=== PATIENT | male | born 1945 | race Caucasian/White ===

== ENCOUNTER → 2017-07-27 | Outpatient (CLI) | payer OTHER, MEDICARE ==
[~2017-07-27] VITALS: Ht 175.3 cm; Wt 84.8 kg
[~2017-07-27] MED LIST: ASPIR 8181 M1 PO; CIPRO500 MG PO; DAILY MULTIPLE1 EACH PO; HYTRIN10 MG PO; NORVASC10 MG PO; PRAVASTATIN SOD10 MG PO; TOPROL XL25 MG PO
== END | disposition home or self-care (01) ==
LOC: AMB 08:49
PROC: 0DB68ZX Excision of Stomach, Via Natural or Artificial Opening Endoscopic, Diagnostic (ICD-10-PCS; principal; 2017-07-27)
DX: K22.10 Ulcer of esophagus without bleeding (principal); K22.2 Esophageal obstruction; K44.9 Diaphragmatic hernia without obstruction or gangrene; K29.70 Gastritis, unspecified, without bleeding; K21.0 Gastro-esophageal reflux disease with esophagitis; I10 Essential (primary) hypertension; E78.6 Lipoprotein deficiency; Z79.82 Long term (current) use of aspirin
CPT/HCPCS: 88305; 88342 TC; J2250

== ENCOUNTER → 2017-11-22 | Outpatient (CLI) | payer MEDICARE ==
[~2017-11-22] MED LIST changes: +APPLE CIDER VINEGAR PO; +NORVASC2.5 MG PO
== END | disposition home or self-care (01) ==
LOC: CDC 08:17
DX: Z01.810 Encounter for preprocedural cardiovascular examination (principal); K40.20 Bilateral inguinal hernia, without obstruction or gangrene, not specified as recurrent; I51.7 Cardiomegaly; R94.31 Abnormal electrocardiogram [ECG] [EKG]
CPT/HCPCS: 93000

== ENCOUNTER 2017-11-27 12:03 | Day surgery (SDC) | payer OTHER, MEDICARE ==
[~2017-11-27] VITALS: Ht 177.8 cm; Wt 87.7 kg
[2017-11-27 12:43] VITALS: BP 179/74
[2017-11-27] MEDS ORDERED: PERCOCET 5/31 TABLET PO (16:35)
[2017-11-27] MEDS ORDERED: COLACE100 MG PO (16:35)
[2017-11-27 18:23] VITALS: BP 188/80
[2017-11-27 19:25] VITALS: BP 184/84
[2017-11-27 20:52] VITALS: BP 154/80
[2017-11-28 00:36] VITALS: BP 166/76
[2017-11-28 06:40] VITALS: BP 178/82
[2017-11-28 11:15] VITALS: BP 172/76
== END 2017-11-28 12:28 | disposition home or self-care (01) ==
LOC: SDC → 2SOUTH 16:14 → 5EAST 16:14 → 2SOUTH 16:14 → ENRESERV 18:54 → 5EAST 19:53
DX: K40.91 Unilateral inguinal hernia, without obstruction or gangrene, recurrent (principal); K40.90 Unilateral inguinal hernia, without obstruction or gangrene, not specified as recurrent; N40.0 Benign prostatic hyperplasia without lower urinary tract symptoms; K21.0 Gastro-esophageal reflux disease with esophagitis; I10 Essential (primary) hypertension; E78.5 Hyperlipidemia, unspecified; Z86.010 Personal history of colon polyps; I71.4 Abdominal aortic aneurysm, without rupture; K59.09 Other constipation; M19.90 Unspecified osteoarthritis, unspecified site; E66.3 Overweight; Z79.82 Long term (current) use of aspirin; Z68.27 Body mass index [BMI] 27.0-27.9, adult
CPT/HCPCS: C1727; C1781; G0378; J0131; J0690; J1100; J1170; J2405; J2710; J2765; J3010; J7120; J7643